=== PATIENT | male | born 1955 ===

== ENCOUNTER 2022-08-29 14:29 | Outpatient (CLI) | payer MEDICARE, OTHER ==
[2022-08-29 15:12] LABS: Hemoglobin 13.7 g/dL (13.5-17.5); Mean Corpuscular HGB CONC 32.3 g/dL (32.0-36.0); Mean Corpuscular Hemoglobin 28.8 pg (27.0-33.0); Mean Corpuscular Volume 89.3 fl (81.2-95.1); Mean Platelet Volume 10.3 fl (7.4-10.4); Platelet Count 181 10x3/uL (150-450); RBC Distribution Width 13.7 % (11.5-14.5); Red Blood Cell (RBC) Count 4.75 10x6/uL (4.32-5.72); White Blood Cell (WBC) Count 3.2 10x3/uL (3.5-10.5)
[2022-08-29 15:16] LABS: Anion Gap 13 mmol/L (10-20); BUN (Urea Nitrogen) 24 mg/dL (8.4-25.7); Calc. Creatinine Clearance 0 mL/min (70-130); Calcium 8.8 mg/dL (7.8-10.44); Carbon Dioxide 26 mmol/L (23-31); Chloride 107 mmol/L (98-107); Estimated GFR 50; Glucose 107 mg/dL (80-115); Potassium 4.4 mmol/L (3.5-5.1); Sodium 142 mmol/L (136-145)
[2022-08-29 15:21] LABS: PTT 29.1 sec (22.0-33.0); Prothrombin Time 10.9 sec (9.5-12.1)
== END 2022-08-29 14:30 | disposition home or self-care (01) ==
LOC: LABBT 14:29
PROVIDERS: ATTEND Surgery
DX: Z01.818 Encounter for other preprocedural examination (principal); M51.26 Other intervertebral disc displacement, lumbar region; M48.062 Spinal stenosis, lumbar region with neurogenic claudication
CPT/HCPCS: 80048; 85027; 85610; 85730; 93005; 93010

== ENCOUNTER 2022-08-30 07:28 | Observation (INO) | payer MEDICARE, OTHER ==
[2022-08-30] MEDS ORDERED: Thrombin 5000 UNITS/5 ML VIAL ONE (09:03)
[2022-08-30] MEDS ORDERED: Vancomycin 1 GM VIAL ONE (09:03)
[2022-08-30] MEDS ORDERED: Sodium Chloride 0.9% 100 ML ONE (09:03)
[2022-08-30] MEDS ORDERED: CEFAZOLIN 2 GM VIAL ONE (09:03)
[2022-08-30] MEDS ORDERED: Fentanyl 250 MCG/5 ML VIAL ONE (10:02)
[2022-08-30] MEDS ORDERED: ePHEDrine 50 MG/ML VIAL ONE (10:08)
[2022-08-30] MEDS ORDERED: Ondansetron PF 4 MG/2 ML Vial ONE (10:08)
[2022-08-30] MEDS ORDERED: Lidocaine 1% PF 5 ML VIAL ONE (10:08)
[2022-08-30] MEDS ORDERED: Dexamethasone 20 MG/5 ML VIAL ONE (10:08)
[2022-08-30] MEDS ORDERED: PROPOFOL 200 MG/20 ML VIAL ONE (10:08)
[2022-08-30] MEDS ORDERED: Rocuronium Bromide 10 MG/ML (10ML VIAL) ONE (10:08)
[2022-08-30] MEDS ORDERED: MINERAL OIL/WHITE PETROLATUM 3.5 GM TUBE ONE (10:25)
[2022-08-30] MEDS ORDERED: SUGAMMADEX SODIUM 200 MG/2 ML VIAL ONE (12:24)
[2022-08-30] MEDS ORDERED: Ondansetron HCl/PF 4 MG/2 ML Vial IVP PRN (12:31)
[2022-08-30] MEDS ORDERED: PACU-Morphine 4MG/ML VIAL SLOW IVP PRN (12:31)
[2022-08-30] MEDS ORDERED: Promethazine HCl 25 MG/ML VIAL IM PRN (12:31)
[2022-08-30] MEDS ORDERED: HYDROmorphone 2 MG/ML VIAL SLOW IVP PRN (12:31)
[2022-08-30] MEDS ORDERED: Morphine Sulfate 2 MG/ML SYRINGE SLOW IVP PRN (12:31)
[2022-08-30] MEDS ORDERED: diphenhydrAMINE 25 MG CAP PO PRN (12:39)
[2022-08-30] MEDS ORDERED: Acetaminophen 325 MG TAB PO PRN (12:39)
[2022-08-30] MEDS ORDERED: HYDROcodone/Acetaminophen 7.5/325 mg Tablet PO PRN (12:39)
[2022-08-30] MEDS ORDERED: traMADol HCl 50 MG TAB PO PRN (12:39)
[2022-08-30] MEDS ORDERED: Ondansetron PF 4 MG/2 ML Vial IVP PRN (12:39)
[2022-08-30] MEDS ORDERED: Morphine 2 MG/ML VIAL SLOW IVP PRN (12:39)
[2022-08-30] MEDS ORDERED: tiZANidine HCl 4 MG TAB PO PRN (12:44)
[2022-08-30] MEDS ORDERED: hydrALAZINE 20 MG/ML VIAL SLOW IVP PRN (12:44)
[2022-08-30] MEDS: Acetaminophen/Codeine 30-300mg Tablet PO PRN (17:10)
[2022-08-30] MEDS: CEFAZOLIN 2 GM in Sodium Chloride 0.9% 100 ML IVPB SCH (17:11)
[2022-08-30] MEDS: Sodium Chloride 0.9% 1,000 ML IV SCH (18:17)
[2022-08-30 18:48] VITALS: BMI 29.2
[2022-08-31] MEDS: CEFAZOLIN 2 GM in Sodium Chloride 0.9% 100 ML IVPB SCH (00:25)
[2022-08-31] MEDS: Sodium Chloride 0.9% 1,000 ML IV SCH (02:01)
[2022-08-31] MEDS: Acetaminophen/Codeine 30-300mg Tablet PO PRN (05:52)
[2022-08-31 08:19] VITALS: BP 121/68; TEMP 97.9
== END 2022-08-31 10:55 | disposition home or self-care (01) ==
LOC: SDC 07:28 → SURG A 12:47
PROVIDERS: ADMIT Surgery; ATTEND Surgery
PROC: 01NB0ZZ Release Lumbar Nerve, Open Approach (ICD-10-PCS; principal; 2022-08-30)
DX: M48.062 Spinal stenosis, lumbar region with neurogenic claudication (principal); M51.26 Other intervertebral disc displacement, lumbar region; E78.5 Hyperlipidemia, unspecified; Z79.1 Long term (current) use of non-steroidal anti-inflammatories (NSAID)
CPT/HCPCS: 96365; 96366; G0378; J1100; J2405; J2704; J3010; J3370; J3490